=== PATIENT | female | born 1960 | race Caucasian/White ===

== ENCOUNTER 2016-08-13 07:41 | Inpatient (IN) | payer BC, MEDICARE ==
[~2016-08-13 07:41] MED LIST: ALDACTONE25 M1 PO; ASPIRIN EC81 MG PO; CELEXA20 M2 PO; COREG25 M1 PO; ENALAPRIL MALEA10 M1 PO; ESTRACE1 M3 TOP; FAMVIR PO; FISH OIL 11000 MG/CA PO; FLONASE ALLERG9.9 ML; GLUCOPHAGE XR500 M1 PO; HYDROCODON-ACE1 EA16 PO; INVOKANA300 MG PO; IROSPAN 24/6 T1 EACH PO; LANOXIN250 MC2 PO; LASIX80 M1 PO; LIPITOR40 M1 PO; LOVENOX80 MG/0.1 SC; MIRALAX17 G2 PO; MIRAPEX0.25 M1 PO; MIRAPEX1 M1 PO; NORVASC10 M2 PO; OMEPRAZOLE20 M4 PO; PENICILLIN V P500 M1 PO; TRICOR145 M2 PO; TYLENOL325 M2 PO; ULTRAM50 M1 PO; VICTOZA 2-0.6 MG/0.1 SC; VITAMIN B-12250 MC2 PO; VITAMIN D35000 UNI2 PO; ZANTAC300 M3 PO; ZETIA10 M1 PO; ZOFRAN4 M2 PO; [UNRECOGNIZED DRUG - OTHER] PO
[2016-08-13 08:53] LABS: INR 1.2 INR (0.9-1.1); PROTHROMBIN TIME 14.2 SECONDS (9.0-13.6)
[2016-08-13 09:01] LABS: ANION GAP 14 mmol/L (0-20); BLOOD UREA NITROGEN 12 mg/dl (6-24); CALCIUM 8.8 mg/dl (8.5-10.5); CARBON DIOXIDE-VENOUS 23 mmol/L (22-32); CHLORIDE 108 mmol/l (96-110); CREATININE 0.68 mg/dl (0.50-1.10); GLUCOSE 178 mg/dL (70-110); POTASSIUM 3.6 mmol/L (3.7-5.1); SODIUM 141 mmol/L (135-145); eGFR VALUE FOR BLACK >90 mL/Min
[2016-08-14 06:22] LABS: BASO % 0.1 % (0-2); EOS % 0.2 % (0-7); HCT-HEMATOCRIT 30.9 % (34.0-49.0); HGB-HEMOGLOBIN 9.9 gm/dl (12.0-15.5); IMMATURE GRANULOCYTES ABSOLUTE 0.01 tho/cmm (0-0.03); IMMATURE GRANULOCYTES PERCENT 0.1 % (0-0.3); LYMPH % 17.5 % (20-45); LYMPH ABSOLUTE COUNT 1.4 tho/cmm (0.8-4.5); MCH (MEAN CORPUSCULAR HGB) 29.1 pg (28.0-32.0); MCV (MEAN CELL VOLUME) 90.9 fl (82.0-96.0); MONO % 9.3 % (0-12); MONOCYTE ABSOLUTE COUNT 0.8 tho/cmm (0.0-1.2); NEUTROPHIL ABSOLUTE COUNT 5.9 tho/cmm (1.6-8.0); NEUTROPHIL-AUTOMATED 5.9 tho/cmm (1.6-8.0); NEUTROPHILS % 72.8 % (40-80); PLATELET COUNT 310 tho/cmm (150-450); RED CELL DISTRIBUTION WIDTH 17.1 % (12.4-16.4); WHITE BLOOD COUNT 8.2 tho/cmm (4.0-10.0)
[2016-08-14 06:38] LABS: CALCIUM 8.6 mg/dl (8.5-10.5); CHLORIDE 102 mmol/l (96-110); POTASSIUM 3.6 mmol/L (3.7-5.1); SODIUM 138 mmol/L (135-145)
[2016-08-14 06:43] LABS: ANION GAP 13 mmol/L (0-20); BLOOD UREA NITROGEN 9 mg/dl (6-24); CARBON DIOXIDE-VENOUS 27 mmol/L (22-32); CREATININE 0.66 mg/dl (0.50-1.10); GLUCOSE 117 mg/dL (70-110); MAGNESIUM 1.6 mg/dl (1.3-2.6); eGFR VALUE FOR BLACK >90 mL/Min
[2016-08-15] MEDS ORDERED: NORCO 5-325 TA1 EACH PO (10:13)
[2016-08-15] MEDS ORDERED: SENNA8.6 M2 PO (10:17)
== END 2016-08-15 11:00 | DRG 330 ==
LOC: SHSB 07:41 → ORW 10:30 → PACU 13:36 → 5WD 14:35
PROVIDERS: Anesthesiology; ADMIT Colon & Rectal Surgery
PROC: 5A09357 Assistance with Respiratory Ventilation, Less than 24 Consecutive Hours, Continuous Positive Airway Pressure (ICD-10-PCS; principal; 2016-08-13)
PROC: 0DBN4ZZ Excision of Sigmoid Colon, Percutaneous Endoscopic Approach (ICD-10-PCS; principal; 2016-08-13)
DX: K57.20 Diverticulitis of large intestine with perforation and abscess without bleeding (principal); I50.22 Chronic systolic (congestive) heart failure; I10 Essential (primary) hypertension; N73.6 Female pelvic peritoneal adhesions (postinfective); Z79.01 Long term (current) use of anticoagulants; Z95.2 Presence of prosthetic heart valve
CPT/HCPCS: C9290; J1335; J1644; J1650; J2250; J3010; J3480; J7030